=== PATIENT | female | born 2000 | race Caucasian/White ===

== ENCOUNTER 2023-05-15 16:10 | Emergency (ER) | payer OTHER, SELFPAY ==
[2023-05-15 16:33] VITALS: BP 149/96; PULSE 90; RESP 18; TEMP 36.7; O2SAT 97; BMI 38.3
--- NOTE | 2023-05-15 16:42 | XR_ITS ---
The [address] [address] Patient Name: MALATHI WALTON MRN: [id number] date: 2000 Sex: F Assigned Patient Location: ER Current Patient Location: ED.MAIN Accession/Order Number: [id number] Exam Date: 05/15/2023 17:01 Report Date: 05/15/2023 17:47 At the request of: ERIC MERRILL Procedure: XR chest 2V EXAM: XR chest 2V HISTORY: SOB COMPARISON: 10/20/2010. TECHNIQUE: PA and Lateral chest radiographs FINDINGS: Tubes, lines and devices: None. Lungs: Adequate inflation. Clear lungs. No evidence of pneumonia or pulmonary edema. Pleura: No pneumothorax. No pleural effusion. Heart and mediastinum: No enlargement of the cardiomediastinal silhouette. Bones/soft tissues: No acute osseous findings. Minimal thoracic levoconvex curvature. Mild multilevel thoracic disc and endplate degeneration, relatively advanced for age. Unremarkable soft tissues. Abdomen: Unremarkable. XR/XR chest 2V IMPRESSION: No acute pulmonary findings. Electronically authenticated by: SHONA VITALE Date: 05/15/2023 17:47
[2023-05-15] MEDS: IPRATROPIUM/ALBUTEROL SULFATE 3 ML AMPUL.NEB IH (18:44)
[2023-05-15 18:46] VITALS: PULSE 86; RESP 18; O2SAT 96
--- NOTE | 2023-05-15 19:33 | ED.GENADUL1 ---
HPI - General Adult General Chief complaint: Shortness of Breath/Dyspnea Stated complaint: Shortness of breath Time Seen by Provider: 05/15/23 18:16 Source: patient Mode of arrival: walk-in Limitations: no limitations History of Present Illness HPI narrative: Patient is a 23 old female who is presenting to the Emergency Room with chief complaint of cough, congestion, upper respiratory infection that has triggered asthma. Patient has not been on steroids for over 2-3 years if not longer. Patient has had cold, cough and congestion yesterday morning. Patient has been using her albuterol inhaler with little relief. Patient works at [email or web address]. No chemical exposure. No sick contacts that she is aware of. No chest pain, tightness. Patient does have mild chest wall pain with coughing. Patient boyfriend and father at bedside. Patient is not feeling any better from yesterday and today so she came into the Emergency Room for evaluation. No nausea, vomiting, diarrhea, or any other acute complaints. . All systems are negative except as noted/marked. All systems reviewed and otherwise negative. . Nurses note and vital signs reviewed and patient is not hypoxic. General: The patient appears well and in no apparent distress. Patient is resting comfortably on cart. Patient is not toxic, lethargic, or listless Skin: Warm, dry, no pallor noted. There is no rash noted. No petechiae, purpura. Head: Normocephalic, atraumatic Eye: Normal conjunctiva, no drainage, EOMI. PERRL Ears, Nose, Mouth, and Throat: oral mucosa is moist. Nares patent. Mouth without vesicles. Cardiovascular: Regular Rate and Rhythm, no murmur, gallop, rub Respiratory: Patient is in no distress, no accessory muscle use, lungs Has diffuse wheezing, congestion, no rales or crackles noted. No accessory muscles use, no retracctions. Musculoskeletal: Patient has full range of motion of all of the extremities, no motor, sensory, or focal neurological deficits Neurological: A&O x3, normal speech Psychiatric: Cooperative Related Data Previous Rx's Medication Instructions Recorded prednisone 50 mg tablet 50 mg PO DAILY 3 days #3 tabs 05/15/23 Allergies Allergy/AdvReac Type Severity Reaction Status Date / Time No Known Drug Allergies Allergy Verified 05/15/23 16:32 PFSH PFSH Social History Smoking status: Never smoker Exam Constitutional Vital Signs, click to edit/add: Last Vital Signs Temp 98.1 F 05/15/23 16:33 Pulse 86 05/15/23 18:46 Resp 18 05/15/23 18:46 BP 149/96 H 05/15/23 16:33 Pulse Ox 96 05/15/23 18:46 O2 Del Method Room Air 05/15/23 18:46 Course Vital Signs Vital signs: Vital Signs Temperature 98.1 F 05/15/23 16:33 Pulse Rate 90 05/15/23 16:33 Respiratory Rate 18 05/15/23 16:33 Blood Pressure 149/96 H 05/15/23 16:33 Pulse Oximetry 97 05/15/23 16:33 Oxygen Delivery Method Room Air 05/15/23 16:33 Temperature 98.1 F 05/15/23 16:33 Pulse Rate 86 05/15/23 18:46 Respiratory Rate 18 05/15/23 18:46 Blood Pressure 149/96 H 05/15/23 16:33 Pulse Oximetry 96 05/15/23 18:46 Oxygen Delivery Method Room Air 05/15/23 18:46 Medical Decision Making MDM Narrative Medical decision making narrative: Chest x-ray showed no acute cardiopulmonary disease, no infiltrate, no effusion. Patient was given a DuoNeb breathing treatment. Education at bedside was done discussing [id number] treatments and regimen that she can be doing at home. Patient was placed on a 3 day burst of steroids to help with asthma exacerbation.Patient will continue using her inhaler 2 puffs every 4 hours while awake for the next 3-4 days. No questions at discharge. Discharge Plan Discharge Chief Complaint: Shortness of Breath/Dyspnea Clinical Impression: Asthma exacerbation, mild, Sinus congestion, Upper respiratory infection Patient Disposition: Home, Self-Care Condition: Fair Prescriptions / Home Meds: New prednisone 50 mg tablet 50 mg PO DAILY 3 Days Qty: 3 0RF Instructions: Asthma (ED), Upper Respiratory Infection (ED), Cold Symptoms (ED) Additional Instructions: Start using DayQuil, NyQuil, Flonase daily for next 5-7 days Add Mucinex DM if needed. Take daily vitamin C, vitamin D3, and zinc Increase fluids. Alternate Tylenol and Motrin every 4 hours as needed for body aches, muscle pain, joint pain or chest wall pain Follow-up with her PCP is no significant improvement in the next 3-4 days Stand Alone Forms: Portal Instructions Referrals: BIN CLAYTON [Primary Care Provider] - 1 week Discharge Date/Time: 05/15/23 19:03
== END 2023-05-15 19:03 | disposition home or self-care (01) ==
PROVIDERS: Emergency Provider Emergency Medicine; PCP Nurse Practitioner Family
DX: J45.901 Unspecified asthma with (acute) exacerbation (principal); J06.9 Acute upper respiratory infection, unspecified; R09.81 Nasal congestion
CPT/HCPCS: 71046; 94640; 99283